=== PATIENT | male | born 1930 | race Hispanic/Latino ===

== ENCOUNTER 2017-08-05 06:49 | Day surgery (SDC) | payer OTHER, MEDICARE ==
[~2017-08-05] VITALS: Ht 165.1 cm; Wt 71.7 kg
[~2017-08-05 06:49] MED LIST: ASPI-555 PO; CHOL100040 PO; DILT240C11 PO; ENAL2.5T PO; FENO160T16 PO; FURO20TA4 PO; TOLT2CAP4 PO; VIT1TABL75 PO
[2017-08-05 07:22] VITALS: BP 145/78
[2017-08-05] MEDS ORDERED: SODIUM CHLORIDE 0.9% 1000ML 1,000 ML IV ONE (08:16)
[2017-08-05] MEDS ORDERED: PROPOFOL 10 MG/ML 20ML VIAL IV ONE ×2 (08:17)
[2017-08-05 08:24] VITALS: BP 80/42
[2017-08-05] MEDS ORDERED: PHENYLEPHRINE HCL 10 MG/ML 1ML VIAL IV ONE (08:30)
== END 2017-08-05 09:10 ==
LOC: DAH 06:49
PROVIDERS: ATTEND Internal Medicine Gastroenterology
DX: I85.00 Esophageal varices without bleeding (principal); K70.30 Alcoholic cirrhosis of liver without ascites; E78.5 Hyperlipidemia, unspecified; I25.10 Atherosclerotic heart disease of native coronary artery without angina pectoris; I13.0 Hypertensive heart and chronic kidney disease with heart failure and stage 1 through stage 4 chronic kidney disease, or unspecified chronic kidney disease; N18.9 Chronic kidney disease, unspecified; I50.9 Heart failure, unspecified
CPT/HCPCS: 43235; 93005; A4606; J2370; J2704 ×2; J7030

== ENCOUNTER → 2017-12-31 | Outpatient (CLI) | payer OTHER, MEDICARE ==
[~2017-12-31] MED LIST changes: +TOLT2CAP21 PO; -TOLT2CAP4 PO
== END | disposition home or self-care (01) ==
LOC: RAH 08:21
PROVIDERS: ATTEND Internal Medicine
DX: K80.20 Calculus of gallbladder without cholecystitis without obstruction (principal); K70.9 Alcoholic liver disease, unspecified; N28.9 Disorder of kidney and ureter, unspecified
CPT/HCPCS: 76700; 93975

== ENCOUNTER → 2018-07-17 | Outpatient (CLI) | payer OTHER, MEDICARE | END | disposition home or self-care (01) | LOC: SHCH 13:40 | PROVIDERS: ATTEND Internal Medicine Cardiovascular Disease | DX: I37.1 Nonrheumatic pulmonary valve insufficiency (principal); I48.91 Unspecified atrial fibrillation | CPT/HCPCS: 93306 ==

== ENCOUNTER → 2018-10-20 | Outpatient (CLI) | payer OTHER, MEDICARE | END | disposition home or self-care (01) | LOC: RAH 09:18 | PROVIDERS: ATTEND Internal Medicine Gastroenterology | DX: N28.1 Cyst of kidney, acquired (principal); K70.30 Alcoholic cirrhosis of liver without ascites | CPT/HCPCS: 76700; 93975 ==